=== PATIENT | female | born 1990 | race Caucasian/White ===

== ENCOUNTER → 2021-03-20 | Outpatient (CLI) | payer MEDICAID | LOC: LAB FS 11:47 | PROVIDERS: ATTEND Obstetrics & Gynecology | DX: O20.0 Threatened abortion (principal) | CPT/HCPCS: 36415; 84702 ==

== ENCOUNTER → 2021-03-21 | Outpatient (CLI) | payer MEDICAID ==
--- NOTE | 2021-03-21 11:39 | Diagnostic Imaging Report ---
INDICATION: Vaginal bleeding for four days. FINDINGS: There is an intrauterine with pole of 19.8 mm. Gestational age of 8 weeks 4 days. The amniotic sac appears normal. There is a large heterogeneous subchorionic fluid collection consistent with hemorrhage. This measures approximately 5.8 x 2.2 x 5 cm. The maternal adnexa appear normal. Both ovaries are visualized. IMPRESSION: Single live intrauterine fetus with current biometric measurements consistent with 8 week 4 day gestation. Sonographic EDC of 10/27/2020. This correlates well with LMP. There is a rather large subchorionic fluid collection present. Dictated by: Dictated on workstation # [id number]
== END ==
LOC: RAD 10:00
PROVIDERS: ATTEND Obstetrics & Gynecology
DX: O20.9 Hemorrhage in early pregnancy, unspecified (principal); Z3A.08 8 weeks gestation of pregnancy
CPT/HCPCS: 76801; 76817

== ENCOUNTER 2021-03-22 20:33 | Emergency (ER) | payer MEDICAID ==
[~2021-03-22] VITALS: Ht 157.5 cm; Wt 58.1 kg
[2021-03-22 20:37] VITALS: BP 107/69
[2021-03-22] MEDS ORDERED: NS IV 1000 ML 1,000 ML IV SCH (20:45)
--- NOTE | 2021-03-22 20:54 | ED GU-Female ---
General Chief Complaint: Female Reproductive Stated Complaint: VAGINAL BLEEDING/ 8 WEEKS Source: patient History of Present Illness Date Seen by Provider: Mar 22, 2021 Time Seen by Provider: 20:44 Initial Comments PT ARRIVES VIA POV FROM HOME IN [place] PT STATES SHE IS APPROXIMATELY 8 WEEKS WITH LMP 01/19/[address] LOVE FOR THIS --HAS FIRST APPOINTMENT 03/30/21 RX FOR KEFLEX WAS CALLED IN LAST WEEK FOR UTI SYMPTOMS, TOOK FOR 3-4 DAYS, THOSE SYMPTOMS ARE GONE PT BEGAN HAVING VAGINAL BLEEDING ON Saturday03/17/21, WHILE IN [place], [place] AND WENT TO ER THERE. URINE WAS CLEAR AT THAT TIME, SO KEFLEX WAS STOPPED PT CALLED DR. LOVE'S OFFICE ON SATURDAY AND HAD OUTPATIENT LAB DONE, QUANT BHCG WAS 75,729, WHICH WAS HIGHER THAN IT WAS WHEN SHE WAS SEEN IN [place]--WAS 68,000 ON Saturday03/17/21 HAD OUTPATIENT ULTRASOUND DONE YESTERDAY, WHICH SHOWED GEST AGE OF 8 WEEKS, 4 DAYS ( CONSISTENT WITH LMP) AND LARGE SUBCHORIONIC HEMORRHAGE STATES BLEEDING HAS CONTINUED TODAY, AND WAS HEAVY EARLIER TODAY, THEN WAS SPOTTING, THEN ABOUT AN HOUR AGO, GOT HEAVY AGAIN HAS BEEN PASSING CLOTS, WITH A COUPLE LARGE HER PALM STATES SHE HAS GONE THROUGH 3 BRIEFS TODAY AND ABOUT 10 PADS EARLIER TODAY, HER BP DROPPED TO 70 SYSTOLIC, THEN WENT BACK UP TO 90/60 WHICH IS NORMAL FOR PT WAS SLIGHTLY DIZZY EARLIER, NOT NOW HANDS WERE NUMB AND TINGLY EARLIER, NOT NOW HAS SOME MILD LOWER BACK DISCOMFORT BUT NO PELVIC CRAMPING NO NAUSEA/VOMITING PT IS AB0 PRE-ECLAMPSIA WITH BOTH PREVIOUS PREGNANCIES 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 Allergies and Home Medications Allergies Coded Allergies: No Known Drug Allergies (Unverified , 03/22/21) Patient Home Medication List Home Medication List Reviewed: Yes Review of Systems Review of Systems Constitutional: see HPI, dizziness EENTM: no symptoms reported Respiratory: no symptoms reported Cardiovascular: no symptoms reported Gastrointestinal: no symptoms reported Genitourinary: see HPI : Yes LMP: January 19, 2021 Musculoskeletal: see HPI, back pain Skin: no symptoms reported Psychiatric/Neurological: See HPI Past Nyqqysl-Bxplug-Tnwhey Hx Past Medical History Surgeries: Yes Section Respiratory: No Cardiac: No Neurological: No : Yes Last Menstrual Period: January 19, 2021 Reproductive Disorders: No Genitourinary: No Gastrointestinal: No Musculoskeletal: No Endocrine: Yes (HYPOGLYCEMIA) HEENT: No Cancer: No Psychosocial: No Integumentary: No Blood Disorders: No Physical Exam Vital Signs Vital Signs - First Documented 03/22/21 20:37 Temp 36.0 Pulse 93 Resp 17 B/P (MAP) 107/69 (82) O2 Delivery Room Air Capillary Refill : Height, Weight, BMI Height: '" Weight: lbs. oz. kg; BMI Method: General Appearance: WD/WN, no apparent distress HEENT: PERRL/EOMI; No pale conjunctivae (R), No pale conjunctivae (L) Cardiovascular: regular rate, rhythm, no murmur Respiratory: normal breath sounds Gastrointestinal: non tender, soft, no organomegaly Back: no CVA tenderness Extremities: normal inspection, no pedal edema Neurologic/Psychiatric: no motor/sensory deficits, alert, normal mood/affect, oriented x 3 Skin: normal color, warm/dry; No pallor Progress/Results/Core Measures Suspected Sepsis SIRS Temperature: Pulse: Respiratory Rate: Laboratory Tests 03/22/21 21:02: White Blood Count 12.5H Blood Pressure / Mean: Laboratory Tests 03/22/21 21:02: Creatinine 0.83, Platelet Count 276 Results/Orders Lab Results Laboratory Tests Test 03/22/21 21:02 Range/Units White Blood Count 12.5 H 4.3-11.0 10^3/uL Red Blood Count 4.16 3.80-5.11 10^6/uL Hemoglobin 12.4 11.5-16.0 g/dL Hematocrit 37 35-52 % Mean Corpuscular Volume 89 80-99 fL Mean Corpuscular Hemoglobin 30 25-34 pg Mean Corpuscular Hemoglobin Concent 34 32-36 g/dL Red Cell Distribution Width 13.2 10.0-14.5 % Platelet Count 276 130-400 10^3/uL Mean Platelet Volume 9.7 9.0-12.2 fL Immature Granulocyte % (Auto) 0 % Neutrophils (%) (Auto) 59 42-75 % Lymphocytes (%) (Auto) 31 12-44 % Monocytes (%) (Auto) 6 0-12 % Eosinophils (%) (Auto) 4 0-10 % Basophils (%) (Auto) 0 0-10 % Neutrophils # (Auto) 7.3 1.8-7.8 10^3/uL Lymphocytes # (Auto) 3.9 1.0-4.0 10^3/uL Monocytes # (Auto) 0.8 0.0-1.0 10^3/uL Eosinophils # (Auto) 0.5 H 0.0-0.3 10^3/uL Basophils # (Auto) 0.0 0.0-0.1 10^3/uL Immature Granulocyte # (Auto) 0.1 0.0-0.1 10^3/uL Sodium Level 140 135-145 MMOL/L Potassium Level 3.9 3.6-5.0 MMOL/L Chloride Level 104 98-107 MMOL/L Carbon Dioxide Level 24 21-32 MMOL/L Anion Gap 12 5-14 MMOL/L Blood Urea Nitrogen 8 7-18 MG/DL Creatinine 0.83 0.60-1.30 MG/DL Estimat Glomerular Filtration Rate > 60 BUN/Creatinine Ratio 10 Glucose Level 100 70-105 MG/DL Calcium Level 9.1 8.5-10.1 MG/DL Human Chorionic Gonadotropin, Quant 94412 H <5 MIU/ML My Orders Orders - SMITA DE LA FUENTE DO Basic Metabolic Panel (03/22/21 20:41) Cbc With Automated Diff (03/22/21 20:41) Hcg,Quantitative (03/22/21 20:41) Abo Rh Type (03/22/21 20:41) Ed Iv/Invasive Line Start (03/22/21 20:41) Monitor-Rhythm Ecg Trace Only (03/22/21 20:41) Ed Iv/Invasive Line Start (03/22/21 20:41) Ed Iv/Invasive Line Start (03/22/21 20:41) Ns Iv 1000 Ml (Sodium Chloride 0.9%) (03/22/21 20:45) Vital Signs/I&O 03/22/21 20:37 Temp 36.0 Pulse 93 Resp 17 B/P (MAP) 107/69 (82) O2 Delivery Room Air Capillary Refill : Progress Note : Progress Note PT REPORTS BLEEDING HAS SLOWED DOWN AND DID GO THROUGH ANY PADS DURING ER STAY NO ULTRASOUND AVAILABLE AT THIS HOUR BLOOD TYPE O+ PT REPORTS HER BLOOD PRESSURE IS NORMALLY 90/60 Diagnostic Imaging Comments OB ULTRASOUND DONE ON 03/21/21 OUTPATIENT: FINDINGS: There is an intrauterine with pole of 19.8 mm. Gestational age of 8 weeks 4 days. The amniotic sac appears normal. There is a large heterogeneous subchorionic fluid collection consistent with hemorrhage. This measures approximately 5.8 x 2.2 x 5 cm. The maternal adnexa appear normal. Both ovaries are visualized. IMPRESSION: Single live intrauterine fetus with current biometric measurements consistent with 8 week 4 day gestation. Sonographic EDC of 10/27/2020. This correlates well with LMP. There is a rather large subchorionic fluid collection present. Reviewed: Reviewed by Me Departure Impression Primary Impression: Threatened in first trimester Additional Impression: Subchorionic hemorrhage in first trimester Disposition: HOME, SELF-CARE Condition: Stable Departure-Patient Inst. Decision time for Depature: 21:52 Referrals: MIAN LOVE PANKAJ K MD (PCP/Family) Primary Care Physician Patient Instructions: Bleeding in Early ED, Subchorionic Bleeding, Threatened Miscarriage (DC) Add. Discharge Instructions: NOTHING IN VAGINA-NO TAMPONS, DOUCHING OR INTERCOURSE INCREASE YOUR FLUID INTAKE--DRINK ENOUGH SO YOU ARE URINATING EVERY 2-3 HOURS WHILE AWAKE FOLLOW UP WITH DR. LOVE THIS WEEK FOR FURTHER CARE--CALL IN AM TO SCHEDULE APPOINTMENT RETURN TO ER IF SYMPTOMS WORSEN All discharge instructions reviewed with patient and/or family. Voiced understanding. SMITA DE LA FUENTE DO Mar 22, 2021 20:54
[2021-03-22 21:08] LABS: BASOPHILS % (AUTO) 0 % (0-10); EOSINOPHILS # (AUTO) 0.5 10^3/uL (0.0-0.3); EOSINOPHILS % (AUTO) 4 % (0-10); HEMATOCRIT 37 % (35-52); HEMOGLOBIN 12.4 g/dL (11.5-16.0); LYMPHOCYTES # (AUTO) 3.9 10^3/uL (1.0-4.0); LYMPHOCYTES % (AUTO) 31 % (12-44); MEAN CORPUSCULAR HEMOGLOBIN 30 pg (25-34); MEAN CORPUSCULAR HGB CONC 34 g/dL (32-36); MEAN CORPUSCULAR VOLUME 89 fL (80-99); MEAN PLATELET VOLUME 9.7 fL (9.0-12.2); MONOCYTES # (AUTO) 0.8 10^3/uL (0.0-1.0); MONOCYTES % (AUTO) 6 % (0-12); NEUTROPHILS # (AUTO) 7.3 10^3/uL (1.8-7.8); NEUTROPHILS % (AUTO) 59 % (42-75); PLATELET COUNT 276 10^3/uL (130-400); WHITE BLOOD COUNT 12.5 10^3/uL (4.3-11.0)
[2021-03-22 21:17] LABS: CHLORIDE 104 MMOL/L (98-107); POTASSIUM 3.9 MMOL/L (3.6-5.0); SODIUM 140 MMOL/L (135-145)
[2021-03-22 21:18] LABS: CALCIUM 9.1 MG/DL (8.5-10.1); GLUCOSE 100 MG/DL (70-105)
[2021-03-22 21:20] LABS: CARBON DIOXIDE 24 MMOL/L (21-32)
[2021-03-22 21:22] LABS: CREATININE SERUM 0.83 MG/DL (0.60-1.30); GFR ESTIMATED > 60
[2021-03-22 21:23] LABS: BUN/CREATININE RATIO 10
== END 2021-03-22 22:02 | disposition home or self-care (01) ==
LOC: EDUNIT# 20:33 → ER 20:36
DX: O20.0 Threatened abortion (principal); Z3A.08 8 weeks gestation of pregnancy
CPT/HCPCS: 36415; 80048; 84702; 85025; 86900; 86901; 93041

== ENCOUNTER 2021-04-12 08:18 | Emergency (ER) | payer MEDICAID ==
[~2021-04-12] VITALS: Ht 157.5 cm; Wt 59.9 kg
--- NOTE | 2021-04-12 08:56 | ED GU-Female ---
General Chief Complaint: Female Reproductive Stated Complaint: VAGINAL BLEEDING;12 WKS Source: patient Exam Limitations: no limitations History of Present Illness Date Seen by Provider: Apr 12, 2021 Time Seen by Provider: 08:30 Initial Comments Patient to the ER by private conveyance from home with her significant other and chief complaint that she is having vaginal bleeding for the past several days with blood clots greater than the chickens egg size. She denies any chest pain or shortness of air. She is having some cramping intermittent abdominal/low pelvic pain. She is a G3, P2 at 11 weeks and [address] Love. She had some bleeding 2 to 3 weeks ago and an ultrasound demonstrated sub chorionic hemorrhage. Repeat ultrasound at Dr. Love's clinic showed resolution of said hematoma and she had an increasing hCG at that time. LMP 01/19/2021 which puts her at 11 weeks and 6 days. She has a history of 2 C- sections with history of one child was breech and the other child she had a mini stroke related to preeclampsia. Allergies and Home Medications Allergies Coded Allergies: No Known Drug Allergies (Unverified , 03/22/21) Patient Home Medication List Home Medication List Reviewed: Yes Review of Systems Review of Systems Constitutional: No chills, No fever EENTM: No ear discharge, No ear pain Cardiovascular: No chest pain, No palpitations Gastrointestinal: abdominal pain; No nausea, No vomiting Genitourinary: denies discharge, denies dysuria Musculoskeletal: No back pain, No joint pain All Other Systemes Reviewed Negative Unless Noted: Yes Past Nqlgzyi-Zgmpyi-Ssewpn Hx Patient Social History Tobacco Use?: No Smoking Status: Former Smoker Substance use?: No Alcohol Use?: No Pt feels they are or have been: No Immunizations Up To Date First/Initial COVID19 Vaccinat: 09/11/2020 Second COVID19 Vaccination Santiago: 10/15/2020 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 oz. kg; 23.00 BMI Method: General Appearance: WD/WN, mild distress HEENT: PERRL/EOMI, pharynx normal Neck: full range of motion, normal inspection Cardiovascular: normal peripheral pulses, regular rate, rhythm Respiratory: normal breath sounds, no respiratory distress, no accessory muscle use Gastrointestinal: normal bowel sounds, soft Extremities: normal inspection, normal capillary refill Neurologic/Psychiatric: alert, normal mood/affect, oriented x 3 Skin: normal color, warm/dry Progress/Results/Core Measures Suspected Sepsis SIRS Temperature: Pulse: Respiratory Rate: Laboratory Tests 04/12/21 08:55: White Blood Count 18.2H Blood Pressure / Mean: Laboratory Tests 04/12/21 08:55: Creatinine 0.56L, Platelet Count 283, Total Bilirubin 0.2 Results/Orders Lab Results Laboratory Tests Test 04/12/21 08:55 04/12/21 09:19 Range/Units White Blood Count 18.2 H 4.3-11.0 10^3/uL Red Blood Count 4.30 3.80-5.11 10^6/uL Hemoglobin 12.6 11.5-16.0 g/dL Hematocrit 38 35-52 % Mean Corpuscular Volume 88 80-99 fL Mean Corpuscular Hemoglobin 29 25-34 pg Mean Corpuscular Hemoglobin Concent 33 32-36 g/dL Red Cell Distribution Width 13.2 10.0-14.5 % Platelet Count 283 130-400 10^3/uL Mean Platelet Volume 9.7 9.0-12.2 fL Immature Granulocyte % (Auto) 1 % Neutrophils (%) (Auto) 85 H 42-75 % Lymphocytes (%) (Auto) 9 L 12-44 % Monocytes (%) (Auto) 5 0-12 % Eosinophils (%) (Auto) 1 0-10 % Basophils (%) (Auto) 0 0-10 % Neutrophils # (Auto) 15.5 H 1.8-7.8 10^3/uL Lymphocytes # (Auto) 1.6 1.0-4.0 10^3/uL Monocytes # (Auto) 0.8 0.0-1.0 10^3/uL Eosinophils # (Auto) 0.1 0.0-0.3 10^3/uL Basophils # (Auto) 0.0 0.0-0.1 10^3/uL Immature Granulocyte # (Auto) 0.1 0.0-0.1 10^3/uL Neutrophils % (Manual) 90 % Lymphocytes % (Manual) 5 % Monocytes % (Manual) 4 % Eosinophils % (Manual) 1 % Band Neutrophils % Blood Morphology Comment NORMAL Sodium Level 137 135-145 MMOL/L Potassium Level 3.9 3.6-5.0 MMOL/L Chloride Level 104 98-107 MMOL/L Carbon Dioxide Level 22 21-32 MMOL/L Anion Gap 11 5-14 MMOL/L Blood Urea Nitrogen 6 L 7-18 MG/DL Creatinine 0.56 L 0.60-1.30 MG/DL Estimat Glomerular Filtration Rate 126 BUN/Creatinine Ratio 11 Glucose Level 92 70-105 MG/DL Calcium Level 8.6 8.5-10.1 MG/DL Corrected Calcium 8.9 8.5-10.1 MG/DL Total Bilirubin 0.2 0.1-1.0 MG/DL Aspartate Amino Transf (AST/SGOT) 13 5-34 U/L Alanine Aminotransferase (ALT/SGPT) 15 0-55 U/L Alkaline Phosphatase 70 40-136 U/L Total Protein 6.6 6.4-8.2 GM/DL Albumin 3.6 3.2-4.5 GM/DL Urine Color RED H Urine Clarity CLEAR Urine pH 7.0 5-9 Urine Specific [place] 1.020 1.016-1.022 Urine Protein 2+ H NEGATIVE Urine Glucose (UA) NEGATIVE NEGATIVE Urine Ketones TRACE H NEGATIVE Urine Nitrite POSITIVE H NEGATIVE Urine Bilirubin NEGATIVE NEGATIVE Urine Urobilinogen 2.0 < = 1.0 MG/DL Urine Leukocyte Esterase TRACE H NEGATIVE Urine RBC (Auto) 3+ H NEGATIVE Urine RBC >100 H /HPF Urine WBC >100 H /HPF Urine Squamous Epithelial Cells 0-2 /HPF Urine Renal Epithelial Cells NONE /HPF Urine Crystals NONE /LPF Urine Bacteria NEGATIVE /HPF Urine Casts NONE /LPF Urine Mucus NEGATIVE /LPF Urine Culture Indicated YES My Orders Orders - MERLY WASHINGTON Cbc With Automated Diff (04/12/21 08:56) Comprehensive Metabolic Panel (04/12/21 08:56) Ua Culture If Indicated (04/12/21 08:56) Urine Bedside (04/12/21 08:56) Manual Differential (04/12/21 08:55) Urine Culture (04/12/21 09:19) Vital Signs/I&O 04/12/21 08:32 Temp 36.3 Pulse 67 Resp 20 B/P (MAP) 103/57 (72) Pulse Ox 99 O2 Delivery Room Air Capillary Refill : Progress Note #1: Time: 08:50 Progress Note When the nurse help the patient into her down she had the products of conception including an amniotic sac which appeared to be intact in the vagina which easily delivered. Suspect placenta should shortly follow. Patient is still having some cramping. Will do a manual exam with speculum. We will check some labs to make sure her hemoglobin is not significantly dropped. Progress Note #2: Time: 09:26 Progress Note Hemoglobin is 12 and she is O+. Discussed the case with Dr. Love and he agrees with expectant management if her hemoglobin is normal and her vitals are okay. He would recommend follow-up in the next 1 to 2 weeks to make sure the hCG is appropriately going down. Patient states she has an appointment on the , 2 weeks from now Departure Impression Primary Impression: Incomplete miscarriage Disposition: HOME, SELF-CARE Condition: Stable Departure-Patient Inst. Decision time for Depature: 10:04 Referrals: MIAN LOVE PANKAJ K MD (PCP/Family) Primary Care Physician Patient Instructions: Miscarriage (DC) Add. Discharge Instructions: Drink plenty of fluids. 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 Follow-up with Dr. Love at your follow-up appointment. Return to the ER promptly if you experience chest pain, shortness of air or other worrisome symptoms. Tylenol 1000 mg every 8 hours as necessary for pain. Ibuprofen 800 mg every 8 hours necessary for cramping pain. Hydrocodone 1 tablet every 6 hours as necessary for pain. All discharge instructions reviewed with patient and/or family. Voiced understanding. Scripts Hydrocodone/Acetaminophen (Hydrocodone-Acetamin 5-325 mg) 1 Each Tablet 1 TAB PO Q6H PRN for PAIN-MODERATE (5-7), #15 TAB 0 Refills Prov: MERLY WASHINGTON 04/12/21 Work/School Note: Work Release Form Date Seen in the Emergency Department: Apr 12, 2021 Return to Work: Apr 17, 2021 Restrictions: No Restrictions Copy Copies To 1: MIAN LOVE TITUS J Apr 12, 2021 08:55
[2021-04-12 09:05] LABS: BASOPHILS % (AUTO) 0 % (0-10); EOSINOPHILS # (AUTO) 0.1 10^3/uL (0.0-0.3); EOSINOPHILS % (AUTO) 1 % (0-10); HEMATOCRIT 38 % (35-52); HEMOGLOBIN 12.6 g/dL (11.5-16.0); LYMPHOCYTES # (AUTO) 1.6 10^3/uL (1.0-4.0); LYMPHOCYTES % (AUTO) 9 % (12-44); MEAN CORPUSCULAR HEMOGLOBIN 29 pg (25-34); MEAN CORPUSCULAR HGB CONC 33 g/dL (32-36); MEAN CORPUSCULAR VOLUME 88 fL (80-99); MEAN PLATELET VOLUME 9.7 fL (9.0-12.2); MONOCYTES # (AUTO) 0.8 10^3/uL (0.0-1.0); MONOCYTES % (AUTO) 5 % (0-12); NEUTROPHILS # (AUTO) 15.5 10^3/uL (1.8-7.8); NEUTROPHILS % (AUTO) 85 % (42-75); PLATELET COUNT 283 10^3/uL (130-400); WHITE BLOOD COUNT 18.2 10^3/uL (4.3-11.0)
[2021-04-12 09:16] LABS: ALBUMIN 3.6 GM/DL (3.2-4.5); POTASSIUM 3.9 MMOL/L (3.6-5.0)
[2021-04-12 09:17] LABS: CALCIUM 8.6 MG/DL (8.5-10.1)
[2021-04-12 09:19] LABS: TOTAL PROTEIN 6.6 GM/DL (6.4-8.2)
[2021-04-12 09:20] LABS: BILIRUBIN,TOTAL 0.2 MG/DL (0.1-1.0)
[2021-04-12 09:22] LABS: CREATININE SERUM 0.56 MG/DL (0.60-1.30)
[2021-04-12 09:27] LABS: EOSINOPHILS % (MANUAL) 1 %; LYMPHOCYTES % (MANUAL) 5 %; MONOCYTES % (MANUAL) 4 %; NEUTROPHILS % (MANUAL) 90 %; RBC MORPH NORMAL
[2021-04-12 09:28] LABS: BILIRUBIN,URINE NEGATIVE (NEGATIVE); CLARITY,URINE CLEAR; COLOR,URINE RED; GLUCOSE, URINE (UA) NEGATIVE (NEGATIVE); KETONES,URINE TRACE (NEGATIVE); LEUKOCYTE ESTERASE ,URINE TRACE (NEGATIVE); NITRITE,URINE POSITIVE (NEGATIVE); PROTEIN,URINE 2+ (NEGATIVE)
[2021-04-12 09:44] LABS: BACTERIA,URINE NEGATIVE /HPF; RBC,URINE >100 /HPF; SQUAMOUS EPITHELIAL CELL,UR 0-2 /HPF; WBC,URINE >100 /HPF
[2021-04-12] MEDS ORDERED: ACHD5005 PO (10:07)
[2021-04-12] MEDS ORDERED: ACETAMINOPHEN 325 MG TABLET PO ONE (10:15)
[2021-04-12 10:17] VITALS: BP 97/55
== END 2021-04-12 10:16 | disposition home or self-care (01) ==
LOC: EDUNIT# 08:18 → ER 08:19
DX: O03.4 Incomplete spontaneous abortion without complication (principal); Z87.891 Personal history of nicotine dependence; Z3A.11 11 weeks gestation of pregnancy
CPT/HCPCS: 36415; 80053; 81000; 84702; 84703; 85007; 85027; 87088

== ENCOUNTER → 2021-05-04 | Outpatient (CLI) | payer MEDICAID ==
[~2021-05-04] MED LIST: ACHD5005 PO
== END ==
LOC: LAB 09:20
PROVIDERS: ATTEND Obstetrics & Gynecology
DX: O03.9 Complete or unspecified spontaneous abortion without complication (principal)
CPT/HCPCS: 36415; 84702

== ENCOUNTER → 2021-05-12 | Outpatient (CLI) | payer MEDICAID | LOC: LAB FS 10:28 | PROVIDERS: ATTEND Obstetrics & Gynecology | DX: O03.9 Complete or unspecified spontaneous abortion without complication (principal) | CPT/HCPCS: 36415; 84702 ==